=== PATIENT | male | born 2000 | race Caucasian/White ===

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

== ENCOUNTER 2018-03-07 10:15 | Day surgery (SDC) | payer BC ==
--- NOTE | 2018-03-07 10:42 | GHP ---
[f rep st] PREOP HISTORY AND PHYSICAL DATE OF ADMISSION: 03/07/2018 CHIEF COMPLAINT: Recurrent peritonsillar abscess. HISTORY OF PRESENT ILLNESS: This 17-year-old male has noted recurrent tonsillitis. The patient was initially seen in our office on February 09 for acute tonsillitis. He was placed on clindamycin and dexam ethasone. He did well but noted recurrent pharyngeal pain, particularly on the left, on 03/05/2018. At that time, he was seen in our office and noted to have a left peritonsillar abscess. The left pe ritonsillar abscess was drained and he was continued on the corticosteroid and clindamycin. On this regimen, the patient initially improved but has re worsened. Examination today reveals the presence of a recurrent peritonsillar abscess. The plan at this point is to proceed with tonsillectomy to melisa at the peritonsillar abscess and keep this from happening in the future. PAST MEDICAL HISTORY: Otherwise noncontributory. CURRENT MEDICATIONS: 1. Clindamycin 300 mg q.i.d. 2. Dexamethasone 4 mg q.i.d. ALLERGIES: Ibuprofen. REVIEW OF SYSTEMS: Otherwise unremarkable for cardiac, pulmonary, or hematologic symptoms. EXAMINATION: GENERAL: The patient is an alert and cooperative male in no apparent distress. HEENT: Head is normocephalic, atraumatic. Tympanic membranes, middle ears, and external auditory canals a re within normal limits. Nasal exam is unremarkable. Oral cavity and oropharynx exams reveal a recu rrent left peritonsillar abscess with healing site from prior incision and drainage. NECK: Reveals a tender left jugulodigastric adenopathy. Mild trismus is noted. LUNGS: Clear. HEART: Regular ra te and rhythm without murmur. NEUROLOGIC: Nonfocal. IMPRESSION: The patient has experienced recurrent peritonsillar abscess following earlier drainage o f peritonsillar abscess. PLAN: Proceed with a tonsillectomy. The risks of this procedure, including bleeding, infection, ane sthetic risks, as well as a 1 in 100 chance of delayed postoperative hemorrhage, which could be sever e and requiring rehospitalization or reoperation, were discussed. In addition, a postoperative recov iliana period lasting approximately 10 days accompanied by [id number] pharyngeal pain and decrea sed ability to tolerate p.o. liquids and solids was discussed as well. The patient and his mother ap pear to understand these risks and wish to proceed. Surgery will be performed on the morning of 12/2017. /[id number]/MODL
[2018-03-07] MEDS ORDERED: fentaNYL 100 MCG/2 ML INJ ONE ×2 (10:44)
[2018-03-07] MEDS ORDERED: PROPOFOL 200 MG/20 ML VIAL ONE (10:44)
[2018-03-07] MEDS ORDERED: ROCURONIUM 50 MG/5 ML VIAL ONE (10:46)
[2018-03-07] MEDS ORDERED: LIDOCAINE 2% 5 ML SDV ONE (10:46)
[2018-03-07] MEDS ORDERED: DEXAMETHASONE 4 MG/ML VIAL ONE ×2 (10:47)
[2018-03-07] MEDS ORDERED: ONDANSETRON 4 MG/2 ML VIAL ONE (10:47)
[2018-03-07] MEDS ORDERED: MIDAZOLAM 2 MG/2 ML VIAL ONE (10:52)
--- NOTE | 2018-03-07 11:19 | PDANEPAE ---
ANE History of Present Illness recurrent tonsillar abscess ANE Past Medical History - Cardiovascular History Hx Hypertension: No Hx Arrhythmias: No Hx Chest Pain: No Hx Coronary Artery / Peripheral Vascular Disease: No Hx CHF / Valvular Disease: No Hx Palpitations: No - Pulmonary History Hx COPD: No Hx Asthma/Reactive Airway Disease: No Hx Recent Upper Respiratory Infection: No Hx Oxygen in Use at Home: No Hx Sleep Apnea: No - Endocrine History Hx Diabetes: No Hypothyroid: No Hyperthyroid: No Obesity: no ANE Review of Systems Review of systems is: negative Review of Systems: - Exercise capacity Exercise capacity: >=4 METS ANE Patient History - Allergies Allergies/Adverse Reactions: ibuprofen Allergy (Mild, Verified 03/07/18 10:18) Rash mold Allergy (Uncoded 03/17/17 01:15) - Home Medications Home medications: home medication list seen and reviewed Home Medications: Clindamycin HCl [Clindamycin] 300 mg PO 03/07/18 [Last Taken Unknown] methylPREDNISolone [Medrol 4mg (*)] 4 mg PO 03/07/18 [Last Taken Unknown] - Anes Hx Anes Hx: no prior problems - Smoking Hx Smoking Status: Never smoked ANE Labs/Vital Signs - Vital Signs Blood Pressure: 117/61 Heart Rate: 60 Respiratory Rate: 16 O2 Sat (%): 99 Height: 182.88 cm Weight: 72.575 kg ANE Physical Exam - Airway Neck exam: FROM Mallampati Score: Class 1 Mouth exam: small mouth opening - Pulmonary Pulmonary: no respiratory distress - Cardiovascular Cardiovascular: regular rate and rhythym - ASA Status ASA Status: I, E ANE Anesthesia Plan Anesthesia Plan: general endotracheal anesthesia
[2018-03-07] MEDS ORDERED: BUPIVACAINE 0.25% 30 ML SDV ONE (11:26)
[2018-03-07] MEDS ORDERED: SUCCINYLCHOLINE CHLORIDE 200 MG/10 ML SYR IVP ONE (11:29)
--- NOTE | 2018-03-07 11:31 | POSTOPPROG ---
Post Op Note Date of Operation: 03/07/18 Surgeon: Rishabh Lorenzo Anesthesiologist: Merline Anesthesia: GET(General Endotracheal) Pre-op Diagnosis: recurrent left peritonsillar acscess Post-op Diagnosis: same Indication: same Procedure: tonsillectomy Findings: left BASKETBALL SCOUT Inf/Abcess present in the surg proc area at time of surgery?: Yes Depth: Superfical (Skin SQ) EBL: Minimal (20 ml) Complications: none Specimen(s): tonsils
[2018-03-07] MEDS ORDERED: SUGAMMADEX SODIUM 200 MG/2 ML VIAL IVP ONE (11:45)
[2018-03-07] MEDS ORDERED: NALOXONE HCL 0.4 MG/ML INJ IVP PRN (12:14)
[2018-03-07] MEDS ORDERED: HYDROCODONE/APAP 5/325 TAB PO PRN (12:14)
[2018-03-07] MEDS ORDERED: LABETALOL HCL 5 MG/ML 20 ML MDV IVP PRN (12:14)
[2018-03-07] MEDS ORDERED: oxyCODONE IR 5 MG TAB PO PRN (12:14)
[2018-03-07] MEDS ORDERED: METOCLOPRAMIDE 10 MG/2 ML VIAL IVP PRN (12:14)
[2018-03-07] MEDS ORDERED: ACETAMINOPHEN 500 MG TAB PO PRN (12:14)
[2018-03-07] MEDS ORDERED: HYDROmorphONE/DILAUDID 1 MG/ML INJ IVP PRN (12:14)
[2018-03-07] MEDS ORDERED: PROMETHAZINE HCL 25 MG/ML INJ IVP PRN (12:14)
[2018-03-07] MEDS ORDERED: ALBUTEROL 3 ML DEYVIAL IH PRN (12:14)
[2018-03-07] MEDS ORDERED: LR 500 ML IV PRN (12:14)
[2018-03-07] MEDS ORDERED: fentaNYL 100 MCG/2 ML INJ IVP PRN (12:14)
[2018-03-07] MEDS ORDERED: ONDANSETRON 4 MG/2 ML VIAL IVP PRN (12:14)
--- NOTE | 2018-03-07 12:14 | POSTANESTH ---
Post Anesthetic Evaluation Cardiovascular Status: Normal, Stable Respiratory Status: Normal, Stable Level of Consciousness/Mental Status: Can Participate in Eval, Alert and Oriented Pain Control: Adequate, Prn Tx Ordered Nausea/Vomiting Control: Adequate, Prn Tx Ordered Complications Possibly Related to Anesthesia: None Noted
--- NOTE | 2018-03-07 12:18 | GOP ---
[f rep st] OPERATIVE REPORT DATE OF OPERATION: 03/07/2018 SURGEON: Rafael Lorenzo MD ANESTHESIA: General endotracheal. PREOPERATIVE DIAGNOSIS: Recurrent left peritonsillar abscess. POSTOPERATIVE DIAGNOSIS: Recurrent left peritonsillar abscess. PROCEDURE PERFORMED: Quinsy tonsillectomy. FINDINGS: Large left peritonsillar abscess treated by bilateral tonsillectomy. ESTIMATED BLOOD LOSS: 20 mL. DESCRIPTION OF PROCEDURE: Patient was placed on the operating table in supine position. After induc tion of adequate general endotracheal anesthesia, sterile draping was performed. Sterile eye pads an d head drape were placed. A shoulder roll had been placed beneath the patient's shoulders to extend the neck. The Mckenna-Paco mouth gag was inserted over the previously placed endotracheal tube with c are given to maintain the tube's correct depth. The Mckenna-Paco mouth gag was then opened revealing enlarged tonsils with a large left peritonsillar abscess. The right tonsil was grasped with an Allis clamp, and retracted medially. Circumferential dissection of the right tonsil was performed in a cheung pracapsular plane. Hemostasis was obtained throughout this dissection by use of Bovie electrocautery . Once this was completed, attention was directed to the left tonsil and left peritonsillar abscess. The mucosa overlying the tonsil was incised and just deep to the mucosa, a very large abscess was e ncountered. This was then suctioned clear using a Yankauer suction. The abscess had done a good por tion of the dissection. The remainder of the dissection was done in a supracapsular plane using the needle-tip Bovie electrocautery. Once the left tonsil had been excised, hemostasis was obtained thro ughout the left tonsillar fossa base with Bovie electrocautery. A number of oozing vessels were enco untered and these were treated. At this point, the Mckenna-Paco mouth gag was let down for approximat candice 1 minute and then reopened. No further bleeding was noted. The right and left tonsillar fossas were infiltrated with 0.25% Marcaine solution. A total of 14 mL were injected with care given to the avoidance of intravascular injection. At this point, the Mckenna-Paco mouth gag was again let down f or approximately 1 minute and then reopened. No further bleeding was noted from the injection sites. An orogastric tube was passed. The patient's gastric contents were aspirated. He was then awakene d, transferred to postanesthesia recovery in stable condition. FLUID REPLACEMENT: 500 mL. COMPLICATIONS: None. /[id number]/MODL
[2018-03-07] MEDS ORDERED: HYDROCODONE/APAP 5/325 TAB ONE (13:27)
[2018-03-07 14:03] VITALS: BP 108/56
== END 2018-03-07 14:05 | disposition home or self-care (01) ==
LOC: FSGY 11:16
PROVIDERS: ATTEND Otolaryngology
PROC: 0CTPXZZ Resection of Tonsils, External Approach (ICD-10-PCS; principal; 2018-03-07 11:18)
DX: J36 Peritonsillar abscess (principal)
CPT/HCPCS: J0330; J1100; J2250; J2405; J2704; J3010